=== PATIENT | female | born 1980 | race Caucasian/White ===

== ENCOUNTER 2017-03-19 09:43 | Emergency (ER) | payer MEDICAID ==
[2017-03-19 10:25] LABS: BASOPHILS % (AUTO) 0.3 %; EOSINOPHILS % (AUTO) 0.8 %; HGB - HEMOGLOBIN 13.8 g/dL (12.0-16.0); LYMPHOCYTES % (AUTO) 23.4 %; MEAN CORPUSCULAR HEMOGLOBIN 28.6 pg (27.0-31.0); MEAN CORPUSCULAR HGB CONC 33.5 g/dL (32.0-36.0); MEAN CORPUSCULAR VOLUME 85.3 fL (81.0-99.0); MEAN PLATELET VOLUME 7.7 fL (7.9-10.8); MONOCYTES # (AUTO) 0.4 10^3/uL (0.0-1.0); NEUTROPHILS # (AUTO) 2.8 10^3/uL (1.5-6.6); NEUTROPHILS % (AUTO) 66.5 %; RED BLOOD COUNT 4.81 10^6/uL (4.20-5.40); RED CELL DISTRIBUTION WIDTH 13.6 % (12.0-15.0); UNCORRECTED WHITE BLOOD COUNT 4.2 x10^3/uL; WHITE BLOOD COUNT 4.2 x10^3/uL (4.8-10.8)
[2017-03-19 10:38] LABS: CALCIUM 8.9 mg/dL (8.5-10.3); CREATININE 0.8 mg/dL (0.4-1.0); POTASSIUM 3.7 mmol/L (3.5-5.0); TOTAL PROTEIN 7.3 g/dL (6.7-8.2)
[2017-03-19] MEDS ORDERED: KETOROLAC 60 MG/2 ML VIAL IVP STA (10:46)
--- NOTE | 2017-03-19 10:49 | ED Physician Documentation ---
History of Present Illness - Stated complaint Stated Complaint: CP/ABD PX - Chief complaint Chief Complaint: Cardiac - Additonal information Additional information: hx from pt 36 f to ER with ruq and lower r chest pain since 5 pm last night ate chesse and sausage croissant and cheeseburger that day + fever no NV no cough soa 2/2 pain no urinary sx denies - states 100% certain 2/2 not sexually active Review of Systems Constitutional: reports: Fever Cardiac: reports: Chest pain / pressure Respiratory: reports: Dyspnea GI: reports: Abdominal Pain. 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 - Present Medications Home Medications: Ambulatory Orders Medication Instructions Recorded Confirmed Sertraline HCl [Zoloft] 1 tab DAILY 10/13/14 03/19/17 metFORMIN [Glucophage] 1,000 mg DAILY 10/13/14 03/19/17 - Allergies Allergies/Adverse Reactions: Allergies Allergy/AdvReac Type Severity Reaction Status Date / Time No Known Drug Allergies Allergy Verified 10/13/14 11:38 - Social History Does the pt smoke?: No Smoking Status: Never smoker Does the pt drink ETOH?: No Does the pt have substance abuse?: No PD ED PE NORMAL - Vitals Vital signs reviewed: Yes - General General: Alert and oriented X 3 - HEENT HEENT: PERRL - Neck Neck: Supple, no meningeal sign - Cardiac Cardiac: RRR - Respiratory Respiratory: No respiratory distress, Clear bilaterally - Abdomen Abdomen: Soft, Other (ruq TTP ? murphys) - Derm Derm: Normal color - Extremities Extremities: No deformity Results - Vitals Vitals: Vital Signs - 24 hr 03/19/17 03/19/17 09:48 14:40 Temperature 37.4 C 37.7 C H Heart Rate 88 95 Respiratory 18 16 Rate Blood Pressure 124/53 L 107/64 O2 Saturation 99 98 Oxygen O2 Source Room air - EKG (time done) 0951 Rate: Rate (enter#) (87) Rhythm: NSR [place]: Normal Intervals: Normal MA Ischemia: Normal ST segments - Labs Labs: Laboratory Tests 03/19/17 03/19/17 03/19/17 10:19 10:19 10:19 WBC 4.2 L RBC 4.81 Hgb 13.8 Hct 41.0 MCV 85.3 MCH 28.6 MCHC 33.5 RDW 13.6 Plt Count 146 MPV 7.7 L Neut # 2.8 Lymph # 1.0 L [place] # 0.4 Eos # 0.0 Baso # 0.0 Absolute Nucleated RBC 0.00 Nucleated RBCs 0.0 Sodium 137 Potassium 3.7 Chloride 102 Carbon Dioxide 28 Anion Gap 7.0 BUN 11 Creatinine 0.8 Estimated GFR (MDRD) 82 L Glucose 147 H Calcium 8.9 Total Bilirubin 1.0 AST 49 H ALT 66 H Alkaline Phosphatase 70 Total Protein 7.3 Albumin 3.6 Globulin 3.7 Albumin/Globulin Ratio 1.0 Lipase 30 Serum HCG, Qual NEGATIVE - Rads (name of study) ruq sono Radiology: See rad report (fatty liver, nl GB) CXR Radiology: See rad report (no acute) PD MEDICAL DECISION MAKING - ED course ED course: labs noted - mildly elev AST ALT and glucose pt denies apap etoh use neg sono neg CXR EKG s ischmeia (and pt low risk for ACS) PERC neg serial exams pain had migrated to left side and was improved will try H2B and GI cocktail and plan to dc no change with H2b and GI cocktail but pt understanding and feels OK going home with precautions Departure - Departure Disposition: 01 Home, Self Care Clinical Impression: Abdominal pain Qualifiers: Abdominal location: upper abdomen, unspecified Qualified Code(s): R10.10 - Upper abdominal pain, unspecified Condition: Good Follow-Up: Conrado Shi MD [Primary Care Provider] - (for a recheck before the weekend ) Comments: The labs were fine except for very mildly elevated liver function tests and a mildly elevated glucose level The ultrasound of your gallbladder was fine The chest xray was fine And the EKG was fine Since you are feeling better and the work up is reassuring I think it is safe for you to go home. However, it is not uncommon for medical problems to difficult to diagnose especially in the early stages - so if you develop new symptoms or get worse, please come back to the ER so we can re-evaluate you and see if some disease process is becoming apparent Also please follow up with your PMD to recheck your blood sugar and blood pressure And avoid any alcohol and tylenol and follow up with your PMD to get your liver tests rechecked within 1-2 weeks Forms: Activity restrictions
[2017-03-19] MEDS ORDERED: SODIUM CHLORIDE 0.9% 1,000 ML IV ONE (10:51)
[2017-03-19] MEDS ORDERED: KETOROLAC 30 MG/ML VIAL ONE (10:59)
--- NOTE | 2017-03-19 12:07 | Ultrasound Report ---
RIGHT UPPER QUADRANT ULTRASOUND: 03/19/2017 CLINICAL INDICATION: Pain after eating. TECHNIQUE: Real-time scanning was performed with junior sales representative static images obtained. FINDINGS: The liver measures 21 cm. Hepatic echogenicity is increased, compatible with fatty infiltr ation. No focal parenchymal lesion or intrahepatic biliary dilatation is present. The common bile mannie t measures 5 mm. The gallbladder is normal. The right kidney measures 11.5 cm, and demonstrates no hy dronephrosis. No free fluid is present. IMPRESSION: FATTY INFILTRATION OF THE LIVER. NO EVIDENCE OF CHOLELITHIASIS OR BILIARY DILATATION. JOB #: [id number] EXT JOB #:[id number]
[2017-03-19] MEDS ORDERED: MAG HYDROX/AL HYDROX/SIMETH 30 ML UDC PO STA (13:28)
[2017-03-19] MEDS ORDERED: FAMOTIDINE 20 MG TABLET PO STA (13:28)
[2017-03-19] MEDS ORDERED: LIDOCAINE VISCOUS 2% 15 ML UDC MM STA (13:28)
[2017-03-19] MEDS ORDERED: LIDOCAINE VISCOUS 2% 15 ML UDC MM ONE (14:03)
[2017-03-19] MEDS ORDERED: FAMOTIDINE 20 MG TABLET ONE (14:03)
[2017-03-19] MEDS ORDERED: MAG HYDROX/AL HYDROX/SIMETH 30 ML UDC ONE (14:04)
--- NOTE | 2017-03-19 14:07 | XRAY Preliminary Report ---
Exam: XR Chest 2 View PA/LAT IMPRESSION: Normal 2-view chest radiography. [facility] SITE ID: [id number]
--- NOTE | 2017-03-19 14:15 | XRAY Report ---
EXAM: CHEST RADIOGRAPHY EXAM DATE: 03/19/2017 01:47 PM. CLINICAL HISTORY: Chest pain. Shortness of breath. COMPARISON: None. TECHNIQUE: 2 views. FINDINGS: Lungs/Pleura: No focal opacities evident. No pleural effusion. No pneumothorax. Normal volumes. Mediastinum: Heart and mediastinal contours are unremarkable. Other: Bilateral cervical ribs, anatomic variant. IMPRESSION: Normal 2-view chest radiography. [facility] Referring Provider Line: [phone] SITE ID: [id number]
[2017-03-19 14:42] VITALS: BP 107/64
== END 2017-03-19 15:13 | disposition home or self-care (01) ==
LOC: ED 09:43
DX: R10.11 Right upper quadrant pain (principal); E11.9 Type 2 diabetes mellitus without complications; Z79.84 Long term (current) use of oral hypoglycemic drugs; E28.2 Polycystic ovarian syndrome
CPT/HCPCS: 36415; 71020; 76705; 80053; 83690; 84703; 85025; 93005; 96374; 99283; A9270

== ENCOUNTER 2017-03-28 08:00 | Outpatient (CLI) | payer MEDICAID | END 2017-03-28 08:01 | disposition home or self-care (01) | LOC: LAB.N 08:00 | PROVIDERS: ATTEND Family Medicine | DX: N88.8 Other specified noninflammatory disorders of cervix uteri (principal) | CPT/HCPCS: 87205 ==

== ENCOUNTER 2017-04-15 16:57 | Outpatient (CLI) | payer MEDICAID ==
--- NOTE | 2017-04-16 13:32 | Ultrasound Report ---
PELVIC ULTRASOUND: 04/15/2017 CLINICAL INDICATION: Cervical inflammatory disease, check IUD placement. TECHNIQUE: Transabdominal pelvic ultrasound performed for global evaluation. Transvaginal pelvic ultr asound performed for detailed evaluation. Real-time scanning performed and static images obtained. FINDINGS: The uterus is anteverted, measuring 11.1 x 6.0 x 4.0 cm. The endometrial echo complex uriel ures 8 mm. The IUD is seen in the lower uterine segment, extending into the upper cervix. No focal my ometrial lesion is present. The right ovary measures 4.4 x 2.2 x 1.9 cm, and appears unremarkable. Th e left ovary measures 3.3 x 2.8 x 2.2 cm, and appears unremarkable. No free fluid is present. IMPRESSION: IUD POSITIONED LOW, EXTENDING FROM THE LOWER UTERINE SEGMENT INTO THE CERVIX. NORMAL OVA GENO. JOB #: [id number] EXT JOB #:[id number]
== END 2017-04-15 16:58 | disposition home or self-care (01) ==
LOC: DI 16:57
PROVIDERS: ATTEND Family Medicine
DX: N72 Inflammatory disease of cervix uteri (principal); Z97.5 Presence of (intrauterine) contraceptive device
CPT/HCPCS: 76830; 76856

== ENCOUNTER 2017-04-17 15:52 | Outpatient (CLI) | payer MEDICAID ==
--- NOTE | 2017-04-30 16:43 | Mammography Report ---
DIGITAL SCREENING MAMMOGRAM: 04/17/2017 CLINICAL INDICATION: A 36-year-old with family history of breast cancer, for screening. COMPARISON: The patient reports having had previous mammograms in [place], [place], but films are not ye t available for direct comparison. If they become available, an addendum will be issued. TECHNIQUE: Routine CC and MLO projections were obtained of the breasts. FINDINGS: The breasts demonstrate fatty replacement bilaterally. Coarse and punctate, typically radha gn calcifications are present. No suspicious masses, clustered microcalcifications, or regions of arc hitectural distortion are identified. IMPRESSION: BENIGN FINDINGS. RECOMMENDATION: ROUTINE ANNUAL SCREENING UNLESS OTHERWISE CLINICALLY INDICATED. BIRADS CATEGORY 2-BENIGN FINDINGS. STANDARD QUALIFYING STATEMENTS 1. This examination was reviewed with the aid of Computer-Aided Detection (CAD). 2. A negative or benign imaging report should not delay biopsy if clinically suspicious findings are present. Consider surgical consultation if warranted. More than 5% of cancers are not identified by i maging. 3. Dense breasts may obscure an underlying neoplasm. JOB #: [id number] EXT JOB #:[id number]
== END 2017-04-17 15:53 | disposition home or self-care (01) ==
LOC: DI 15:52
PROVIDERS: ATTEND Family Medicine
DX: Z00.00 Encounter for general adult medical examination without abnormal findings (principal); Z80.3 Family history of malignant neoplasm of breast
CPT/HCPCS: 77067

== ENCOUNTER 2018-05-04 08:40 | Outpatient (CLI) | payer MEDICAID, OTHER ==
[2018-05-04 12:56] LABS: BASOPHILS % (AUTO) 0.4 %; EOSINOPHILS # (AUTO) 0.1 10^3/uL (0.0-0.7); EOSINOPHILS % (AUTO) 1.6 %; HGB - HEMOGLOBIN 14.1 g/dL (12.0-16.0); LYMPHOCYTES # (AUTO) 2.1 10^3/uL (1.5-3.5); MEAN CORPUSCULAR HGB CONC 34.5 g/dL (32.0-36.0); MEAN CORPUSCULAR VOLUME 84.1 fL (81.0-99.0); MEAN PLATELET VOLUME 8.8 fL (7.9-10.8); MONOCYTES # (AUTO) 0.4 10^3/uL (0.0-1.0); MONOCYTES % (AUTO) 5.6 %; NEUTROPHILS # (AUTO) 3.7 10^3/uL (1.5-6.6); NEUTROPHILS % (AUTO) 59.4 %; PLT - PLATELET COUNT 188 10^3/uL (130-450); RED BLOOD COUNT 4.86 10^6/uL (4.20-5.40); WHITE BLOOD COUNT 6.3 x10^3/uL (4.8-10.8)
[2018-05-04 13:07] LABS: ALBUMIN 3.9 g/dL (3.2-5.5); ALBUMIN/GLOBULIN RATIO 1.1 (1.0-2.2); ALKALINE PHOSPHATASE 89 IU/L (42-121); ALT ALANINE AMINOTRANSFERASE 58 IU/L (10-60); AST ASPARTATE AMINOTRANSFERASE 40 IU/L (10-42); BILIRUBIN,TOTAL 0.8 mg/dL (0.2-1.0); BUN - BLOOD UREA NITROGEN 15 mg/dL (6-20); CALCIUM 9.3 mg/dL (8.5-10.3); CARBON DIOXIDE - CO2 29 mmol/L (21-32); CHLORIDE 99 mmol/L (101-111); CHOL/HDL RATIO 7.1 (<4.4); CHOLESTEROL 292 mg/dL; CREATININE 0.8 mg/dL (0.4-1.0); GFR - MDRD 81 (>89); GLUCOSE 154 mg/dL (70-100); HDL CHOLESTEROL 41 mg/dL; LDL CHOLESTEROL,CALCULATED 206 mg/dL; SODIUM 137 mmol/L (135-145); TOTAL PROTEIN 7.6 g/dL (6.7-8.2); VLDL CHOLESTEROL 45 mg/dL
[2018-05-04 13:13] LABS: HB2 TOTAL 15.2 g/dL; HEMOGLOBIN A1C 0.81 g/dL
== END 2018-05-04 08:41 | disposition home or self-care (01) ==
LOC: LAB.N 08:40
PROVIDERS: ATTEND Family Medicine
DX: R73.01 Impaired fasting glucose (principal); E66.9 Obesity, unspecified; E78.5 Hyperlipidemia, unspecified
CPT/HCPCS: 36415; 80050; 80061; 83036; 83721

== ENCOUNTER 2018-07-22 11:28 | Emergency (ER) | payer OTHER ==
[2018-07-22 12:08] LABS: BASOPHILS % (AUTO) 0.4 %; EOSINOPHILS # (AUTO) 0.1 10^3/uL (0.0-0.7); EOSINOPHILS % (AUTO) 1.2 %; HGB - HEMOGLOBIN 13.6 g/dL (12.0-16.0); LYMPHOCYTES # (AUTO) 2.2 10^3/uL (1.5-3.5); LYMPHOCYTES % (AUTO) 29.4 %; MEAN CORPUSCULAR HEMOGLOBIN 28.8 pg (27.0-31.0); MEAN CORPUSCULAR HGB CONC 34.3 g/dL (32.0-36.0); MEAN CORPUSCULAR VOLUME 84.1 fL (81.0-99.0); MEAN PLATELET VOLUME 7.9 fL (7.9-10.8); MONOCYTES # (AUTO) 0.3 10^3/uL (0.0-1.0); MONOCYTES % (AUTO) 3.8 %; NEUTROPHILS # (AUTO) 4.8 10^3/uL (1.5-6.6); NEUTROPHILS % (AUTO) 65.2 %; PLT - PLATELET COUNT 177 10^3/uL (130-450); RED CELL DISTRIBUTION WIDTH 14.2 % (12.0-15.0); WHITE BLOOD COUNT 7.4 x10^3/uL (4.8-10.8)
--- NOTE | 2018-07-22 12:15 | ED Physician Documentation ---
PD HPI CHEST PAIN - Stated complaint Stated Complaint: CHEST PALPITATIONS,TIGHTNESS - Chief complaint Chief Complaint: Cardiac - History obtained from History obtained from: Patient - History of Present Illness Timing - onset: Today (This is a 38-year-old woman with history of CHF 9 years ago and pericarditis as a teenager who presents with fluttering palpitations that started while at rest at work today at 10 AM and lasted for about half an hour. Its associated with moderate chest pressure that is improving but not gone without radiation. There is no associated pedal edema, recent travel, shortness of breath, dizziness, or nausea or sweats, but she is a little fatigued.) Review of Systems Constitutional: reports: Fatigue. 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 - Present Medications Home Medications: Ambulatory Orders Medication Instructions Recorded Confirmed RX: metFORMIN [Glucophage] 1,000 mg DAILY 10/13/14 07/22/18 Sertraline HCl [Zoloft] 1 tab DAILY 10/13/14 07/22/18 - Allergies Allergies/Adverse Reactions: Allergies Allergy/AdvReac Type Severity Reaction Status Date / Time No Known Drug Allergies Allergy Verified 07/22/18 11:45 - Social History Does the pt smoke?: No Smoking Status: Never smoker Does the pt drink ETOH?: No Does the pt have substance abuse?: No PD ED PE NORMAL - Vitals Vital signs reviewed: Yes - General General: Alert and oriented X 3, No acute distress - Neck Neck: Supple, no meningeal sign, No bony TTP - Cardiac Cardiac: RRR, No murmur - Respiratory Respiratory: No respiratory distress, Clear bilaterally - Abdomen Abdomen: Non tender - Extremities Extremities: No edema, No calf tenderness / cord - Neuro Neuro: Alert and oriented X 3, Normal speech Results - Vitals Vitals: Vital Signs - 24 hr 07/22/18 07/22/18 07/22/18 11:42 15:13 15:46 Temperature 37 C 36.4 C L 36.8 C Heart Rate 87 89 77 Respiratory 20 12 Rate Blood Pressure 133/66 H 119/73 139/97 H O2 Saturation 99 97 98 Oxygen O2 Source Room air - EKG (time done) 1141 Rate: Rate (enter#) (87) Rhythm: NSR QRS: Low voltage Ischemia: Non specific changes (Flat T waves). No: ST elevation c/w ischemia, ST elevation c/w repol Computer interpretation: Agree with computer - Labs Labs: Laboratory Tests 07/22/18 07/22/18 07/22/18 11:50 11:50 11:50 WBC 7.4 RBC 4.70 Hgb 13.6 Hct 39.5 MCV 84.1 MCH 28.8 MCHC 34.3 RDW 14.2 Plt Count 177 MPV 7.9 Neut # (Auto) 4.8 Lymph # (Auto) 2.2 [place] # (Auto) 0.3 Eos # (Auto) 0.1 Baso # (Auto) 0.0 Absolute Nucleated RBC 0.00 Nucleated RBC % 0.0 Sodium 135 Potassium 3.7 Chloride 100 L Carbon Dioxide 26 Anion Gap 9.0 BUN 13 Creatinine 0.8 Estimated GFR (MDRD) 81 L Glucose 206 H Calcium 9.0 Magnesium Total Bilirubin 0.8 AST 43 H ALT 49 Alkaline Phosphatase 63 Troponin I < 0.04 B-Natriuretic Peptide Total Protein 7.0 Albumin 3.7 Globulin 3.3 Albumin/Globulin Ratio 1.1 Lipase 40 07/22/18 07/22/18 07/22/18 11:50 11:50 14:45 WBC RBC Hgb Hct MCV MCH MCHC RDW Plt Count MPV Neut # (Auto) Lymph # (Auto) [place] # (Auto) Eos # (Auto) Baso # (Auto) Absolute Nucleated RBC Nucleated RBC % Sodium Potassium Chloride Carbon Dioxide Anion Gap BUN Creatinine Estimated GFR (MDRD) Glucose Calcium Magnesium 1.7 Total Bilirubin AST ALT Alkaline Phosphatase Troponin I < 0.04 B-Natriuretic Peptide 9 Total Protein Albumin Globulin Albumin/Globulin Ratio Lipase - Rads (name of study) 2v chest Radiology: EMP read contemporaneously (normal) PD MEDICAL DECISION MAKING - ED course ED course: 38-year-old woman with palpitations followed by chest pain. EKG is unremarkable here. Given her history a BNP and serial troponins were done in the department without evidence of significant dangerous etiology. Departure - Departure Disposition: 01 Home, Self Care Clinical Impression: Chest pain, Palpitations Condition: Good Instructions: ED Chest Pain Atypical Unkn Cause Comments: Call your doctor to arrange a follow-up appointment, make the next available appointment. In the interim, return anytime if worse or if new symptoms develop. Your blood pressure was elevated today on check into the emergency department. This does not mean that you have hypertension, it is a common phenomenon to come to the emergency department and have elevated blood pressure. I recommend that you see your primary care physician within the week to have it rechecked when you are feeling better. Discharge Date/Time: 07/22/18 15:48
[2018-07-22 12:18] LABS: ALBUMIN 3.7 g/dL (3.2-5.5); ALBUMIN/GLOBULIN RATIO 1.1 (1.0-2.2); BILIRUBIN,TOTAL 0.8 mg/dL (0.2-1.0); CREATININE 0.8 mg/dL (0.4-1.0)
--- NOTE | 2018-07-22 13:00 | XRAY Report ---
Reason: chest pain Procedure Date: 07/22/2018 Accession Number: [id number] / [id number] Procedure: XR - Chest 2 View X-Ray CPT Code: 05364 FULL RESULT: EXAM: CHEST RADIOGRAPHY EXAM DATE: 07/22/2018 12:40 PM. CLINICAL HISTORY: Chest pain. COMPARISON: CHEST 2 VIEW PA/LAT 03/19/2017 1:35 PM. TECHNIQUE: 2 views. FINDINGS: Lungs/Pleura: No focal opacities evident. No pleural effusion. No pneumothorax. Normal volumes. Mediastinum: Heart and mediastinal contours are unremarkable. Other: None. IMPRESSION: Stable exam with no acute cardiopulmonary abnormality. [facility]
[2018-07-22 15:48] VITALS: BP 139/97
== END 2018-07-22 15:48 | disposition home or self-care (01) ==
LOC: ED 11:28
DX: R07.9 Chest pain, unspecified (principal); R00.2 Palpitations; R03.0 Elevated blood-pressure reading, without diagnosis of hypertension; E11.9 Type 2 diabetes mellitus without complications
CPT/HCPCS: 36415; 71046; 80053; 83690; 83735; 83880; 84484; 85025; 93005; 99283

== ENCOUNTER 2018-08-05 16:36 | Outpatient (CLI) | payer OTHER ==
[2018-08-05 16:55] LABS: CREATININE 0.7 mg/dL (0.4-1.0)
[2018-08-05 16:59] LABS: HEMOGLOBIN A1C 0.67 g/dL; HEMOGLOBIN A1C % 6.2 % (4.6-6.2)
== END 2018-08-05 16:37 | disposition home or self-care (01) ==
LOC: LAB 16:36
PROVIDERS: ATTEND Nurse Practitioner
DX: E11.9 Type 2 diabetes mellitus without complications (principal)
CPT/HCPCS: 36415; 80048; 83036

== ENCOUNTER 2018-08-27 12:03 | Outpatient (CLI) | payer OTHER ==
[2018-08-27 19:18] LABS: THYROID STIMULATING HORMONE 1.52 uIU/mL (0.34-5.60)
[2018-08-27 19:29] LABS: FOLATE 9.43 ng/mL (5.90 - >24.8)
== END 2018-08-27 23:59 | disposition home or self-care (01) ==
LOC: LAB.N 12:03
PROVIDERS: ATTEND Nurse Practitioner
DX: E55.9 Vitamin D deficiency, unspecified (principal); R53.83 Other fatigue
CPT/HCPCS: 36415; 82306; 82607; 82746; 84443

== ENCOUNTER 2018-10-06 14:46 | Outpatient (CLI) | payer OTHER | END 2018-10-06 14:47 | disposition home or self-care (01) | LOC: SC 14:46 | PROVIDERS: ATTEND Internal Medicine Pulmonary Disease | DX: G47.10 Hypersomnia, unspecified (principal); R53.83 Other fatigue; R06.83 Snoring | CPT/HCPCS: 99203; 99212 ==

== ENCOUNTER 2018-10-28 20:20 | Outpatient (CLI) | payer OTHER | END 2018-10-28 20:21 | disposition home or self-care (01) | LOC: SC 20:20 | PROVIDERS: ATTEND Internal Medicine Pulmonary Disease | DX: G47.33 Obstructive sleep apnea (adult) (pediatric) (principal) | CPT/HCPCS: 95810 ==

== ENCOUNTER 2019-01-05 13:57 | Outpatient (CLI) | payer OTHER | END 2019-01-05 13:58 | disposition home or self-care (01) | LOC: SC 13:57 | PROVIDERS: ATTEND Internal Medicine Pulmonary Disease | DX: G47.33 Obstructive sleep apnea (adult) (pediatric) (principal) | CPT/HCPCS: 99212; 99213 ==

== ENCOUNTER 2019-02-05 20:20 | Outpatient (CLI) | payer OTHER | END 2019-02-05 20:21 | disposition home or self-care (01) | LOC: SC 20:20 | PROVIDERS: ATTEND Internal Medicine Pulmonary Disease | DX: G47.33 Obstructive sleep apnea (adult) (pediatric) (principal) | CPT/HCPCS: 95811 ==

== ENCOUNTER 2019-03-30 09:16 | Outpatient (CLI) | payer OTHER ==
[2019-03-30 10:35] VITALS: BP 110/70
--- NOTE | 2019-03-30 10:35 | SLEEP CARE CONSULTATION ---
Information from patient questionnaire entered by Lois Chew. I have reviewed and concur with the information entered by Lois Chew. This document represents the service I personally performed and the decisions made by me, Carly Holman, RN, MSN, SCIENTIFIC EDITOR. History of Present Illness Previous diagnosis: Moderate, Obstructive Sleep Apnea-Hypopnea Syndrome AHI: 29.9 Reason for CPAP/BiPAP follow up: first compliance, with manual titration Equipment type: CPAP Equipment obtained from: [employer] Mask style: Nasal (Dreamwear) Mask brand: Respironics Backup mask available: Yes Last cushion change: not since set up HPI additional information: The patient returned to review results of her manual titration study and first compliance visit. Sleep Study - Polysomnography Polysomnography findings: The quality of the study is good. CPAP was initiated at 5 cmH2O and titrated up to CPAP at 9 cmH2O. CPAP at 9 cmH2O appeared to be optimal (AHI of 0.9 per hour on the pressure). There was supine REM sleep on the pressure. Oxygen saturation was normal throughout the night. Lower CPAP settings allowed frequent residual respiratory events. The patient appeared to have tolerated positive airway pressure therapy very well. The patients sleep efficiency was normal. The sleep architecture was normal. There was no periodic limb movement of sleep. Cardiac rhythm was normal sinus rhythm without significant arrhythmia. No abnormal behavior (parasomnia) observed during the night. CPAP Compliance Data - Data Reviewed with Patient Average duration of nightly device use: 5.45 Compliance rate %: 77 Current pressure setting (cmH2O): 4-12 Average residual AHI: 0.8 Average large leak: 1.7 liters a minute Subjective Patient concerns: reports: mask leak noise. denies: aerophagia, mask discomfort, air blowing in eyes (recent mask leaks despite adjustment of headgear), condensation in mask/hose, nasal congestion, dry mouth, nose, throat, epistaxis Observed to snore while using device: No Current pressure setting perceived as: comfortable On therapy, patient: reports: sleeping better, more rested overall (but still tired). denies: drowsiness while driving Initial [place] Sleepiness Scale score: 13 Current [place] Sleepiness Scale score: 12 Allergies and Home Medications Allergy and home medication list: Sertraline 1000mg tab one daily Metformin HCL 100mg tab one twice daily w/meals Hydroxyzine HCL 25mg tab one three times daily as needed Bupropion HCL ER 100mg tab one twice daily Naltrexone HCL 50mg tab daily Atorvastatin 10mg daily Review of Systems Review of systems same as previous: Yes Physical Exam Blood Pressure: 110/70 Cuff size: long Heart Rate: 82 O2 Saturation: 98 Height: 5 ft 3.5 in Weight (kg): 309 lb 12.8 oz Body Mass Index: 54.0 BMI Classification: Class 3 Impression and Plan 1. Obstructive Sleep Apnea-Hypopnea Syndrome, severity, with good treatment compliance and good apnea control. On CPAP therapy, the patient has better sleep quality and is more rested overall but still has fatigue. Fatigue could be due to insufficient sleep with CPAP. She is advised to strive for a minimum of 7 hours. Most people require 7-9 hours of sleep for optimal mental and physical function. I will also adjust her pressure to start at 9cmH20 as indicated by titration study but allow it stay at maximum of [id number] as her 95th pressure is [id number] with current compliance data. Since her nasal cushions are starting to wear down and leak, I advised her to update her mask cushions. I gave her the supply replacement list for her to review for reference. She has met compliance goals for insurance. I emphasized that maximum benefit of treatment is using CPAP with all sleep. Patient's apnea severity and rationale for treatment to reduce apnea, improve sleep quality and reduce cardiovascular and cerebrovascular events was reviewed. I also reviewed the benefit of consistent device use of CPAP for her diabetes, gastric reflux, depression/anxiety. Because of patient's obesity ang goal to lose weight, I explained how correction of her apnea and improved sleep can assist her to lose weight. Fragmentation of sleep affects the appetite hormones. Sleeping better can reduce appetite and allow her to make better food choices. As she loses weight her apnea severity can also reduce. * * Change CPAP pressure to 9-12 cmH2O * update mask cushions * Strive for more sleep. * copy of compliance reports given per request. * Notify me if snoring with mask or feeling that the pressure is too much or too little * Attempt to lose weight * Return for follow up in 3 months, or sooner if concerns arise I spent 100% of this 33 minute visit face to face with the patient with greater than 50% of this was spent time counseling the patient and coordination of care.
== END 2019-03-30 09:17 | disposition home or self-care (01) ==
LOC: SC 09:16
PROVIDERS: ATTEND Nurse Practitioner Family
DX: G47.33 Obstructive sleep apnea (adult) (pediatric) (principal)
CPT/HCPCS: 99212; 99214

== ENCOUNTER 2019-04-13 11:44 | Emergency (ER) | payer OTHER ==
[2019-04-13] MEDS ORDERED: KETOROLAC 60 MG/2 ML VIAL IM STA (12:48)
[2019-04-13] MEDS ORDERED: CYCLOBENZAPRINE 10 MG TABLET PO STA (12:48)
--- NOTE | 2019-04-13 12:49 | ED Physician Documentation ---
PD HPI BACK INJURY - Stated complaint Stated Complaint: BACK - History obtained from History obtained from: Patient - History of Present Illness Location: Left (38-year-old woman with well-controlled type 2 diabetes presents with left low back pain that started last night. No specific injury. It radiates a bit into the thigh, not further. No weakness, numbness, tingling, saddle anesthesia, or incontinence. No fevers. 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 HEENT: Tonsil/Adenoidectomy - Present Medications Home Medications: Ambulatory Orders Medication Instructions Recorded Confirmed Sertraline HCl [Zoloft] 1 tab DAILY 10/13/14 07/22/18 metFORMIN [Glucophage] 1,000 mg DAILY 10/13/14 07/22/18 Atorvastatin [Lipitor] 10 mg ORAL DAILY 04/13/19 04/13/19 Cyclobenzaprine [Flexeril] 10 mg PO TID PRN #20 tablet 04/13/19 Meloxicam [Mobic] 7.5 mg PO BID PRN #20 tablet 04/13/19 Naltrexone [Naltrexone Base 04/13/19 Monohydrate] buPROPion [Wellbutrin Sr] 100 mg PO BID 04/13/19 04/13/19 - Allergies Allergies/Adverse Reactions: Allergies Allergy/AdvReac Type Severity Reaction Status Date / Time No Known Drug Allergies Allergy Verified 04/13/19 11:53 - Social History Does the pt smoke?: No Smoking Status: Never smoker Does the pt drink ETOH?: No Does the pt have substance abuse?: No - Immunizations Immunizations are current?: Yes - POLST Patient has POLST: No PD ED PE NORMAL - Vitals Vital signs reviewed: Yes - General General: Alert and oriented X 3, No acute distress (But winces with motion) - Abdomen Abdomen: Soft, Non tender - Back Back: No spinal TTP, Other (Mild tenderness to the left paralumbar musculature.) - Neuro Neuro: Alert and oriented X 3, Normal speech, Other (The patient has equal and normal Achilles and patellar reflexes bilaterally. Normal sensation in all areas of the legs. Patient denies saddle anesthesia. Normal strength in flexion-extension at the ankles, knees, and flexion of the hips.) Results - Vitals Vitals: Vital Signs - 24 hr 04/13/19 11:52 Temperature 36.2 C L Heart Rate 88 Respiratory 18 Rate Blood Pressure 125/64 O2 Saturation 95 Oxygen O2 Source Room air Departure - Departure Disposition: 01 Home, Self Care Clinical Impression: Low back pain Qualifiers: Chronicity: acute Back pain laterality: left Sciatica presence: without sciatica Qualified Code(s): M54.5 - Low back pain Condition: Good Record reviewed to determine appropriate education?: Yes Instructions: ED Spasm Back No Trauma Prescriptions: Cyclobenzaprine [Flexeril] 10 mg PO TID PRN #20 tablet PRN Reason: Spasms Meloxicam [Mobic] 7.5 mg PO BID PRN #20 tablet PRN Reason: Pain Comments: Follow-up with your doctor tomorrow as scheduled. Do not drink or drive with the perception muscle relaxers. Return for new or worsening symptoms, return f or fever. Return for incontinence. Forms: Activity restrictions
[2019-04-13 13:11] VITALS: BP 131/71
== END 2019-04-13 13:10 | disposition home or self-care (01) ==
LOC: ED 11:44
DX: M54.5 Low back pain (principal); E11.9 Type 2 diabetes mellitus without complications; Z79.84 Long term (current) use of oral hypoglycemic drugs
CPT/HCPCS: 99283; A9270

== ENCOUNTER 2019-07-01 08:16 | Outpatient (CLI) | payer OTHER ==
[2019-07-01 09:01] VITALS: BP 110/70
--- NOTE | 2019-07-01 09:01 | SLEEP CARE CONSULTATION ---
Information from patient questionnaire entered by Lois Chew. I have reviewed and concur with the information entered by Lois Chew. This document represents the service I personally performed and the decisions made by me, Carly Holman, RN, MSN, LINE INSTALLER. History of Present Illness Previous diagnosis: Moderate, Obstructive Sleep Apnea-Hypopnea Syndrome AHI: 29.9 Reason for follow up: three month Equipment type: CPAP Equipment obtained from: [employer] Mask style: Nasal pillows Mask brand: Resmed Backup mask available: Yes Last cushion change: a month HPI additional information: Changing nasal mask cushion resolved mask leaks. When she had a cold she was able to use her full face mask. The new pressure is more comfortable to use. CPAP Compliance Data - Data Reviewed with Patient Average duration of nightly device use: 6.6 Compliance rate %: 91 (90 days) Current pressure setting (cmH2O): 9-12 Humidity settin Average residual AHI: 0.4 Average large leak: 0.6 liters per minute Subjective Patient concerns: denies: aerophagia, mask discomfort, air blowing in eyes, mask leak noise, condensation in mask/hose, nasal congestion, dry mouth, nose, throat, epistaxis Observed to snore while using device: No Current pressure setting perceived as: comfortable On therapy, patient: reports: sleeping better, awakening more refreshed, being more awake and alert during the day, more rested overall. denies: drowsiness while driving Initial [place] Sleepiness Scale score: 13 Current [place] Sleepiness Scale score: 10 Allergies and Home Medications Known drug allergies: No Home medication list reviewed: Yes Allergy and home medication list: sertraline 100mg daily metformin 1000mg daily hydroxyzine 25mg as needed 3 times a day Bupropion 100mg 2 times a day Naltrexone 50mg 1/2 daily atorvastatin 10mg Hs Review of Systems Review of systems same as previous: Yes Physical Exam Blood Pressure: 110/70 Cuff size: long Heart Rate: 78 O2 Saturation: 98 Height: 5 ft 3.5 in Weight: 310 lb 9.6 oz Body Mass Index: 54.1 BMI Classification: Obesity Class 3 Impression and Plan 1. Obstructive Sleep Apnea-Hypopnea Syndrome, moderate , with good treatment compliance and good apnea control. On CPAP therapy, the patient has better sleep quality and is more rested overall. To reduce mask leaks noted on compliance she is advised to change her cushions more frequently such as every 2 weeks. She is planning on losing some weight. She has consult for bariatric surgery or other treatment to reduce weight due to morbid obesity as she has had difficulty losing weight. Thus she was advised how significant weight can reduce her apnea risk, CPAP pressure and overall health risks. Symptoms to report for CPAP pressure adjustment discussed. Patient's apnea severity and rationale for treatment to reduce apnea, improve sleep quality and reduce cardiovascular and cerebrovascular events was reviewed. I also reviewed the benefit of consistent device use of her diabetes, depression/anxiety. * Continue CPAP pressure at 9-12 cmH2O * Notify me if snoring with mask or feeling that the pressure is too much or too little * Attempt to lose weight * Return for follow up in 6 months, or sooner if concerns arise I spent 100% of this 25 minute visit face to face with the patient with greater than 50% of this was spent time counseling the patient and coordination of care.
== END 2019-07-01 08:17 | disposition home or self-care (01) ==
LOC: SC 08:16
PROVIDERS: ATTEND Nurse Practitioner Family
DX: G47.33 Obstructive sleep apnea (adult) (pediatric) (principal); E66.01 Morbid (severe) obesity due to excess calories; Z68.43 Body mass index [BMI] 50.0-59.9, adult
CPT/HCPCS: 99212; 99214

== ENCOUNTER 2020-03-10 16:01 | Outpatient (CLI) | payer OTHER ==
--- NOTE | 2020-03-10 16:38 | SLEEP CARE CONSULTATION ---
Information from patient questionnaire entered by Lois Chew. I have reviewed and concur with the information entered by Lois Chew. This document represents the service I personally performed and the decisions made by , Taylor Grant ARNP. History of Present Illness Service Date and Time: 03/10/2020 1601 Previous diagnosis: Moderate, Obstructive Sleep Apnea-Hypopnea Syndrome AHI: 29.9 (in 2019) Reason for follow up: other (8 month check) Equipment type: CPAP Equipment obtained from: [facility] (getting as needed) Mask style: Nasal Mask brand: Resmed Backup mask available: Yes (old mask) Last cushion change: 1 month ago Prior sleep studies: Yes Year and Where: 2019 - [facility] Type of Sleep Study: Polysomnography HPI additional information: ANY RUIZ was diagnosed to have moderate, AHI 29.9, obstructive sleep apnea-hypopnea syndrome and returned today for CPAP therapy 8 month follow-up. Patient states due to Covid pandemic she did not do some follow ups and she thinks this is basically her annual follow up today. She did have bariatric surgery in January and has lost 20 pounds in the last month. CPAP Compliance Data - Data Reviewed with Patient Average duration of nightly device use: 6.45 Compliance rate %: 90 (90 days) Current pressure setting (cmH2O): 9-12 Average residual AHI: 0.4 Central apnea: 0.2 Obstructive apnea: 0.0 On Oxygen: Yes Subjective Patient concerns: reports: dry mouth, nose, throat (dry mouth in last month, thinks she is not drinking as much fluids). denies: aerophagia, mask discomfort, air blowing in eyes, mask leak noise, condensation in mask/hose, nasal congestion, epistaxis, other Observed to snore while using device: No Current pressure setting perceived as: comfortable On therapy, patient: reports: sleeping better, awakening more refreshed, being more awake and alert during the day, more rested overall. denies: drowsiness while driving Initial [place] Sleepiness Scale score: 13 (in 2019) Current [place] Sleepiness Scale score: 2 Allergies and Home Medications Drug allergies reviewed: Yes (Nsaids) Home medication list reviewed: Yes Allergy and home medication list: Metformin 500 mg daily, reduced from last dose Zofoft Wellbutrin Omeprazole atorvastatin MVT Calcium Review of Systems Review of systems same as previous: No (bariatric surgery January 30) Physical Exam Heart Rate: 86 O2 Saturation: 98 Height: 5 ft 3.5 in Weight: 261 lb 3.2 oz Body Mass Index: 45.5 BMI Classification: Morbidly Obese Impression and Plan 1. Obstructive Sleep Apnea-Hypopnea Syndrome, moderate, with good treatment compliance and good apnea control. On CPAP therapy, there is improved sleep quality and feels more rested overall. She has lost 20 pounds since her bariatric surgery in January. The pressure continues to be comfortable but she was instructed to call if the pressure seems to high or she has aerophagia and we will adjust her pressure to accommodate for her weight loss. Patient's apnea severity and rationale for treatment to reduce apnea, improve sleep quality and reduce cardiovascular and cerebrovascular events was reviewed. I also reviewed the benefit of consistent device use of CPAP for arrhythmia, diabetes, and depression/anxiety. Continue auto CPAP pressure at 9-12 cm H2O. Notify me if snoring with the mask or feeling that the pressure is too much or too little. Continue efforts to lose weight. Return for follow-up in one year, or sooner if concerns arise. a Visit Type: In Office Time Spent with Patient (minutes): 20 Provider Statement: I spent 100% of the Face to Face Visit with the patient with greater than 50% spent counseling the patient and coordination of care.
== END 2020-03-10 16:02 | disposition home or self-care (01) ==
LOC: SC 16:01
PROVIDERS: ATTEND Nurse Practitioner Family
DX: G47.33 Obstructive sleep apnea (adult) (pediatric) (principal); E66.01 Morbid (severe) obesity due to excess calories; Z68.42 Body mass index [BMI] 45.0-49.9, adult
CPT/HCPCS: 99212; 99213

== ENCOUNTER 2021-09-17 15:30 | Outpatient (CLI) | payer OTHER ==
--- NOTE | 2021-09-19 12:08 | Mammography Report ---
BILATERAL DIGITAL SCREENING MAMMOGRAM 3D/2D: 09/17/2021 CLINICAL: Family history of breast cancer. Routine screening. Comparison is made to exams dated: 04/17/2017 mammogram and 03/02/2014 mammogram - [facility]. There are scattered fibroglandular elements in both breasts. There are benign calcifications in both breasts. No significant masses, calcifications, or other findings are seen in either breast. There has been no significant interval change. IMPRESSION: BENIGN There is no mammographic evidence of malignancy. A 1 year screening mammogram is recommended. This exam was interpreted at Station ID: [id number]. NOTE: For mammograms, a report in lay terms will be sent to the patient. Approximately 15% of breast malignancies will not be visualized mammographically. In the management of a palpable breast mass, a negative mammogram must not discourage biopsy of a clinically suspicious lesion. Electronically Signed By: Damon Melendrez M.D. slc/penrad:09/18/2021 08:21:09 ACR BI-RADS Category 2: Benign Finding(s) 3342F PARENCHYMAL PATTERN: (A) - The breast(s) demonstrate(s) scattered fibroglandular densities. BI-RADS CATEGORY: (2) - 2 RECOMMENDATION: (ANNUAL) - Recommend routine annual screening mammography. [id number] 1 year screening LATERALITY: (B)
== END 2021-09-17 15:31 | disposition home or self-care (01) ==
LOC: DI.N 15:30
PROVIDERS: ATTEND Physician Assistant
DX: Z12.31 Encounter for screening mammogram for malignant neoplasm of breast (principal); Z80.3 Family history of malignant neoplasm of breast

== ENCOUNTER 2022-11-17 13:05 | Emergency (ER) | payer OTHER ==
--- NOTE | 2022-11-17 13:46 | ED Physician Documentation ---
PD HPI FOCAL NEURO - Stated complaint Stated Complaint: FACIAL NUMBNESS - Chief complaint Chief Complaint: Neuro - History obtained from History obtained from: Patient - History of Present Illness Timing - onset: Yesterday Timing - duration: Days (1) Timing - details: Gradual onset Associated symptoms: No: Headache, Nausea / vomiting, Seizure, Syncope, Fall, Head injury, Chest pain, Neck pain, Back pain, Fever Contributing factors: negative: Anticoagulated, Vascular dz, Atrial fibrillation, Prosthetic heart valve Baseline status: positive: A&OX3, ambulatory, indep - Additional information Additional information: 42-year-old female presents to the emergency department with right-sided facial numbness and droop on the right side that she noted yesterday. Difficulty closing her eye as well. Nothing makes it better or worse. Does not have any other neurological deficits. No involvement of any limbs. No recent illnesses. No fevers. No chills. 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 HEENT: Tonsil/Adenoidectomy - Present Medications Home Medications: Ambulatory Orders Medication Instructions Recorded Confirmed Sertraline HCl [Zoloft] 1 tab DAILY 10/13/14 07/22/18 metFORMIN [Glucophage] 1,000 mg DAILY 10/13/14 07/22/18 Atorvastatin [Lipitor] 10 mg ORAL DAILY 04/13/19 04/13/19 Cyclobenzaprine [Flexeril] 10 mg PO TID PRN #20 tablet 04/13/19 Meloxicam [Mobic] 7.5 mg PO BID PRN #20 tablet 04/13/19 Naltrexone [Naltrexone Base 04/13/19 Monohydrate] buPROPion [Wellbutrin Sr] 100 mg PO BID 04/13/19 04/13/19 Valacyclovir HCl [Valtrex] 1,000 mg PO TID #21 tablet 11/17/22 predniSONE [Deltasone] 80 mg PO DAILY #28 tablet 11/17/22 - Allergies Allergies/Adverse Reactions: Allergies Allergy/AdvReac Type Severity Reaction Status Date / Time NSAIDS (Non-Steroidal Allergy Unknown Verified 11/17/22 13:17 Anti-Inflamma - Social History Does the pt smoke?: No Smoking Status: Never smoker Does the pt drink ETOH?: No Does the pt have substance abuse?: No - Immunizations Immunizations are current?: Yes - POLST Patient has POLST: No PD ED PE NORMAL - Vitals Vital signs reviewed: Yes - General General: Alert and oriented X 3, No acute distress - HEENT HEENT: PERRL, Moist mucous membranes - Neck Neck: Supple, no meningeal sign, No bony TTP - Cardiac Cardiac: RRR - Respiratory Respiratory: No respiratory distress, Clear bilaterally - Abdomen Abdomen: Soft, Non tender, Non distended - Back Back: No spinal TTP - Derm Derm: Warm and dry, No rash - Extremities Extremities: No edema, No calf tenderness / cord - Neuro Neuro: Alert and oriented X 3, Other (no other abnormalities besides the facial numbness and weakness. ) - Psych Psych: Normal mood, Normal affect - Free text exam Free text exam: Mild right-sided facial paralysis. There is no sparing of the forehead. Positive Kasper's phenomenon. Flattening of the nasolabial fold. Mild decrease sensation on the right side of the face, from the eye down. NIHSS - Time Time: 13:42 - Level of Consciousness Level of consciousness: (0) Alert, Keenly responsive LOC Questions: (0) Answers both Q's correct LOC Commands: (0) Performs both correctly - Gaze Best Gaze: (0) Normal - Visual Visual: (0) No loss - Facial Palsy Facial Palsy: (1) Minor paralysis - Motor Arms (both separate) Motor Arm (right): (0) No drift Motor Arm (left): (0) No drift - Motor Legs (both separate) Motor Leg (right): (0) No drift Motor Leg (left): (0) No drift - Limb Ataxia Limb Ataxia: (0) Absent - Sensory Sensory: (0) Normal - Best Language Best Language: (0) No aphasia - Dysarthria Dysarthria: (0) Normal - Extinction and Inattention (formally neg Extinction and inattention: (0) No abnormality - Total Score/Results Total Score/Result: 1 Results - Vitals Vitals: Vital Signs - 24 hr 11/17/22 11/17/22 13:10 13:51 Temperature 36.9 C Heart Rate 77 76 Respiratory 15 20 Rate Blood Pressure 126/66 119/72 O2 Saturation 96 99 Oxygen O2 Source Room air PD Medical Decision Making - ED course Complexity details: considered differential, d/w patient, d/w family ED course: Patient with Kasper's palsy. We will place on antiviral medication and steroids. Counseled regarding eye care. No indication for emergent head CT, CT angiogram. Symptoms not consistent with stroke. Patient counseled regarding signs and symptoms for which I believe and urgent re-evaluation would be necessary. Patient with good understanding of and agreement to plan and is comfortable going home at this time This document was made in part using voice recognition software. While efforts are made to proofread this document, sound alike and grammatical errors may occur. Departure - Departure Disposition: 01 Home, Self Care Clinical Impression: Kasper palsy Condition: Good Instructions: ED [place] Palsy Follow-Up: LEATHA QUIÑONES ARNP [Primary Care Provider] - Within 1 week Prescriptions: predniSONE [Deltasone] 80 mg PO DAILY #28 tablet Valacyclovir HCl [Valtrex] 1,000 mg PO TID #21 tablet Comments: You have bells palsy today. Your prescriptions were sent to [facility] in [place]. It is recommended that you use artificial tears throughout the day to help lubricate the right eye. You will want to use gel tears, especially at night. You may need to tape your eyelid closed at night as well to prevent corneal abrasions and ulcerations. Please follow-up with your doctor for further care. Discharge Date/Time: 11/17/22 14:00
[2022-11-17 13:52] VITALS: BP 119/72
== END 2022-11-17 14:00 | disposition home or self-care (01) ==
LOC: ED 13:05
DX: G51.0 Bell's palsy (principal); E11.9 Type 2 diabetes mellitus without complications; Z79.84 Long term (current) use of oral hypoglycemic drugs
CPT/HCPCS: 99283

== ENCOUNTER 2023-05-17 14:21 | Emergency (ER) | payer OTHER ==
[2023-05-17 14:30] VITALS: BP 132/61; O2SAT 97
[2023-05-17] MEDS ORDERED: HYDROcod/ACETAM 5/325 MG TABLET PO STA (14:31)
[2023-05-17] MEDS ORDERED: TETANUS/DIPHTHERIA/PERTUSSIS 0.5 ML SYRINGE IM ONE (14:32)
--- NOTE | 2023-05-17 14:33 | ED Physician Documentation ---
PD HPI UPPER EXT INJURY - Stated complaint Stated Complaint: RT FINGER LAC - Chief complaint Chief Complaint: Trauma Ext - History obtained from History obtained from: Patient (Left-handed woman with unknown tetanus status got her third finger of the right hand caught between an object and a tony while working at home just prior to arrival with severe pain. 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 HEENT: Tonsil/Adenoidectomy - Present Medications Home Medications: Ambulatory Orders Medication Instructions Recorded Confirmed Sertraline HCl [Zoloft] 2 tab PO DAILY 10/13/14 01/30/23 buPROPion [Wellbutrin Sr] 100 mg PO BID 04/13/19 01/30/23 Cetirizine HCl [Zyrtec] 10 mg PO PRN PRN 01/30/23 01/30/23 Montelukast [Singulair] 10 mg PO PRN PRN 01/30/23 01/30/23 Valacyclovir HCl [Valtrex] 1,000 mg PO TID PRN 01/30/23 01/30/23 HYDROcod/ACETAM 5/325 [[place] 5/325] 1 - 2 tab PO Q6H PRN #10 tablet 05/17/23 - Allergies Allergies/Adverse Reactions: Allergies Allergy/AdvReac Type Severity Reaction Status Date / Time NSAIDS (Non-Steroidal Allergy Unknown Verified 01/30/23 16:29 Anti-Inflamma - Social History Does the pt smoke?: No Smoking Status: Never smoker Does the pt drink ETOH?: No Does the pt have substance abuse?: No - Immunizations Immunizations are current?: Yes - POLST Patient has POLST: No PD ED PE NORMAL - Vitals Vital signs reviewed: Yes - General General: Alert and oriented X 3, No acute distress - Extremities Extremities: Other (She is tender to the DIP and tip of the right third digit and there is a very small subungual hematoma. There is a flap laceration on the dorsal surface just proximal to the nail.) - Neuro Neuro: Alert and oriented X 3, Normal speech Results - Vitals Vitals: Vital Signs - 24 hr 05/17/23 14:23 Temperature 36.7 C Heart Rate 80 Respiratory 18 Rate Blood Pressure 132/61 H O2 Saturation 97 Oxygen O2 Source Room air - Rads (name of study) Three-view x-ray of the right hand is negative for fracture Relevant Findings:: Final report received, EMP independent interpretation of test Procedures - Laceration (location) R 3rd finger Length in cm: 1 Wound type: Curved, Superficial Neurovascular status: Sensory intact, Motor intact, Vascular intact Wound preparation: Irrigated copiously NS Skin layer closure: Dermabond Other: Patient tolerated well, No complications, Neurovascular intact, Tetanus booster given Departure - Departure Disposition: Home, Self Care Clinical Impression: Crushing injury of finger of right hand Finger laceration Qualifiers: Encounter type: initial encounter Finger: middle finger Damage to nail status: without damage Foreign body presence: without foreign body Laterality: right Qualified Code(s): S61.212A - Laceration without foreign body of right middle f scott without damage to nail, initial encounter Condition: Good Record reviewed to determine appropriate education?: Yes Instructions: ED Crush Injury Finger No Fx, ED Laceration Ext Skin Glue Prescriptions: HYDROcod/ACETAM 5/325 [[place] 5/325] 1 - 2 tab PO Q6H PRN #10 tablet PRN Reason: Pain Comments: If not improving significantly in a week follow-up with your doctor for reevaluation. Return for new or worsening symptoms. I sent your prescription electronically to [facility] in [place]. If pain is mild just use Tylenol per package instructions. I am prescribing a short course of narcotic pain medication for you. These are potentially dangerous and addictive medications that should be used carefully. These medications may constipate you. Take an [id number] stool softener (docusate) twice daily with plenty of water while taking these medications. If you go 24 hours without a bowel movement, take [id number] miralax, per package instructions. Do not drink or drive while taking these medications. If you received narcotic or sedating medications while in the emergency department, do not drive for 24 hours. Store this medication in a safe, secure place and out of reach of children. It is a violation of federal law to give or sell this medication to another person or to use in a manner other than prescribed. The ED will not refill narcotic prescriptions, including prescriptions lost or stolen. To dispose of unwanted medications: 1. [facility] provides a drop box for medication in pill form only (no liquids) 8:00 am to 4:30 p.m. Friday-Friday in the lobby of the [facility] [place], [address] Empty pills into ziplock bag before disposal. Call [phone] for information. 2.[employer]io is a free service available to all [facility] residents. Go to [email or web address] Note that many narcotic pain relievers also contain Tylenol/acetaminophen. Please ensure that your total dose of acetaminophen from all sources does not exceed 3 g (3000 mg) per day. Forms: PCP List Discharge Date/Time: 05/17/23 14:57
--- NOTE | 2023-05-17 15:17 | XRAY Report ---
PROCEDURE: Hand 3 View RT INDICATIONS: hand inj TECHNIQUE: 3 views of the hand(s) acquired. COMPARISON: None. FINDINGS: Bones: No fractures or dislocations. No suspicious bony lesions. Soft tissues: No suspicious soft tissue calcifications or masses. IMPRESSION: No acute bony abnormality. Reviewed by: Jorge Eason MD on 05/17/2023 2:16 PM AKDT Approved by: Jorge Eason MD on 05/17/2023 2:16 PM AKDT Station ID: [id number]
== END 2023-05-17 14:57 | disposition home or self-care (01) ==
LOC: ED 14:21
DX: S67.192A Crushing injury of right middle finger, initial encounter (principal); S61.212A Laceration without foreign body of right middle finger without damage to nail, initial encounter; W23.1XXA Caught, crushed, jammed, or pinched between stationary objects, initial encounter; Y93.89 Activity, other specified; Y92.009 Unspecified place in unspecified non-institutional (private) residence as the place of occurrence of the external cause
CPT/HCPCS: 12001; 73130; 90471; 90715; 99283; 99284; A9270

== ENCOUNTER 2023-05-23 15:34 | Outpatient (CLI) | payer OTHER ==
--- NOTE | 2023-05-23 16:07 | Sleep Patient Instructions ---
Sleep Center Visit Summary - Patient Visit Information Reason for Visit: Initial consultation - Patient Instructions Instructions Attached: Sleep Study, Sleep Study Home Monitor Additional Instructions: You will be completing a sleep study, either an in-lab polysomnography (PSG) or home sleep study (HST). You will follow-up in the sleep care office after the sleep study is completed to hear the results and talk about therapy, if needed. You will be called by our office staff to schedule this appointment, but you may contact us with any questions. - Clinic Information Contact: [facility] [address] [place] [address] [email or web address] T: [phone]
--- NOTE | 2023-05-23 16:09 | SLEEP CARE CONSULTATION ---
Information from patient questionnaire entered by Juliette Okeefe. I have reviewed and concur with the information entered by Juliette Okeefe. This document represents the service I personally performed and the decisions made by me, Taylor Grant ARNP. History of Present Illness Service Date and Time: 05/23/2023 1534 Reason for Visit: New patient, Previously diagnosed sleep apnea, Re-establish care Chief Complaint: reports: Insomnia, Snoring, Excessive daytime sleepiness, Fatigue Date of Onset: YR Usual bedtime: 12AM Time it takes to fall asleep: 15MIN Snores at night: Yes Observed to quit breathing while asleep: Yes Sleeps alone due to snoring: No Number of times waking at night: 1 Reasons for waking at night: reports: Bathroom. denies: Choking, Gasping for air Toss, Turn, or Twitch while sleeping: Yes Recalls having dreams: Yes Usually gets out of bed at: 720AM; weekends 0900 Feels refreshed in the morning: No Morning headache: No Sleepy or fatigued during the day: Yes Ever fallen asleep while driving: No Takes day naps: No Dreams during day naps: Yes Prior sleep studies: Yes Year and Where: [address] - [facility] Additional HPI information: ANY RUIZ was previously diagnosed to have moderate, AHI 29.9, obstructive sleep apnea-hypopnea syndrome as documented in titration study done on 02/05/2019 and comes in today to re-establish care. She is not currently using a CPAP. She has complaints of excessive daytime sleepiness, fatigue, insomnia and snoring. She lost about 70 pounds after a [facility]. She had trouble with the pressure a nd stopped using it after the weight loss. She has not used the CPAP in 2 years. She has gained a lot of weight back. She is here for re-evaluation. - Parasomnia Symptoms Ever been unable to move upon waking from sleep: No Walks in sleep: No Talks in sleep: No Ever acted out dreams in sleep: No Ever felt weak in the knees when startled or emotional: No Bothered by creepy, crawly, restless sensations in legs: Yes Problems with memory or concentration: Yes (mostly memory) Subjective Initial [place] Sleepiness Scale score: 13 (in 2019) Current [place] Sleepiness Scale score: 12 (05/23/23) Past Medical History Past Medical History: reports: Diabetes, Anxiety, Depression, Other (Bariatric surgery January 2020; high cholesterol) Social History The patient's occupation is a [employer]. Patient is and lives in [place]. Have you smoked in the past 12 months: No Alcohol use: No Caffeine use: Yes Caffeine amount and frequency: 1 cup tea daily Family History Family history of sleep disordered breathing: Yes Family Hx Sleep Apnea: Mother: Snoring, Sleep apnea - Treated, Father: Snoring, Sleep apnea - Treated Allergies and Home Medications Known drug allergies: Yes (as listed) Drug allergies reviewed: Yes Home medication list reviewed: Yes Allergy and home medication list: Allergies NSAIDS (Non-Steroidal Anti-Inflamma Allergy (Verified 05/22/23 13:40) Unknown Can't have 2/2 bariatric surgery Home Medications Medication Instructions Recorded Confirmed Last Taken Type Sertraline HCl [Zoloft] 2 tab PO DAILY 10/13/14 05/23/23 Unknown History buPROPion [Wellbutrin Sr] 100 mg PO BID 04/13/19 05/23/23 Unknown History Cetirizine HCl [Zyrtec] 10 mg PO PRN PRN 01/30/23 05/23/23 Unknown History Montelukast [Singulair] 10 mg PO PRN PRN 01/30/23 05/23/23 Unknown History Review of Systems Weight gain over past 5 years: 30 Cardiovascular: denies: high blood pressure Gastrointestinal: denies: heartburn Neurological: reports: headaches Psychiatric: reports: anxiety, depression Ear/Nose/Throat: reports: tonsillectomy, wisdom teeth removed Endocrine: denies: thyroid disease Immunologic: denies: allergies to food or environment Physical Exam Vital signs obtained and entered by: JULIETTE Alas MA Blood Pressure: 120/76 (LEFT ARM) Cuff size: regular Heart Rate: 79 O2 Saturation: 100 Height: 5 ft 3.5 in Weight: 274 lb 9.6 oz Body Mass Index: 47.9 BMI Classification: Morbidly Obese Neck circumference: 16.5 Mouth and throat: narrow oropharynx Soft palate: long Hard palate: normal Uvula: normal Uvula visualization: 25% Mallampati Class III Tongue: enlarged in size with teeth vega on lateral edges Tonsils: absent bilaterally Neck: normal w/o lymphadenopathy or thyromegaly Heart: regular rate and rhythm Lungs: clear bilaterally Impression and Plan 1. Suspected Obstructive Sleep Apnea-Hypopnea Syndrome, as previously diagnosed and as still suggested by a history of loud and irregular snoring, observed cessation of breath while asleep, unrefreshed sleep, cognitive impairment, and excessive daytime sleepiness. Narrow oropharynx and obesity are common predisposing factors for obstructive sleep apnea-hypopnea syndrome. I recommend proceeding to polysomnography to confirm the diagnosis and to assess severity. If the patient has significant sleep disordered breathing, a manual CPAP titration study will also be performed to find the optimal treatment pressure. I informed the patient of what the sleep studies involve and after some discussion, obtained agreement to proceed. The pathophysiology of obstructive sleep apnea-hypopnea syndrome was discussed with the patient and health risks of cardiovascular and cerebrovascular disease if not treated. Risks of drowsy driving discussed in detail and patient advised to avoid long distance driving and to kidney puller at the first sign of drowsiness. Patient agreed to plan. * Schedule polysomnography. * Avoid long distance driving or driving when feeling sleepy. * Avoid alcohol, sedative and muscle relaxant around bedtime. * Attempt to lose weight. * Review instructions provided by trained office staff on how to prepare for the sleep study. * Return for follow-up after sleep study completed. Counseling Topics: Weight loss health impact Plan: PSG/HST and followup Visit Type: In Office Time Spent with Patient (minutes): 21 Provider Statement: I spent 100% of the Face to Face Visit with the patient with greater than 50% spent counseling the patient and coordination of care.
[2023-05-23 16:24] VITALS: BP 120/76; O2SAT 100
== END 2023-05-23 15:35 | disposition home or self-care (01) ==
LOC: SC 15:34
PROVIDERS: ATTEND Nurse Practitioner Family
DX: R06.83 Snoring (principal); G47.8 Other sleep disorders; R06.81 Apnea, not elsewhere classified; G47.10 Hypersomnia, unspecified; R53.83 Other fatigue; E66.01 Morbid (severe) obesity due to excess calories; E11.9 Type 2 diabetes mellitus without complications; F32.A Depression, unspecified; Z68.42 Body mass index [BMI] 45.0-49.9, adult
CPT/HCPCS: 99202; 99212

== ENCOUNTER 2023-06-09 20:20 | Outpatient (CLI) | payer OTHER | END 2023-06-09 20:21 | disposition home or self-care (01) | LOC: SC 20:20 | PROVIDERS: ATTEND Nurse Practitioner Family | DX: G47.8 Other sleep disorders (principal); E11.9 Type 2 diabetes mellitus without complications; F32.A Depression, unspecified; E66.01 Morbid (severe) obesity due to excess calories; Z68.42 Body mass index [BMI] 45.0-49.9, adult | CPT/HCPCS: 95810 ==

== ENCOUNTER 2023-06-24 13:42 | Outpatient (CLI) | payer OTHER ==
--- NOTE | 2023-06-24 14:18 | Sleep Patient Instructions ---
Sleep Center Visit Summary - Patient Visit Information Reason for Visit: Followup sleep study - Patient Instructions Additional Instructions: You are being re-started on CPAP therapy with pressure setting at 4-10 cmH2O. You may call the office with any concerns about pressure feeling too low or too much for adjustment, if needed. You should contact DME supplier for any questions or concerns about mask or equipment. Please call office to schedule a follow up appointment in the sleep care office in 1-2 months. - Clinic Information Contact: [facility] [address] [place] [address] [email or web address] T: [phone]
--- NOTE | 2023-06-24 14:24 | SLEEP CARE CONSULTATION ---
Information from patient questionnaire entered by Juliette Okeefe. I have reviewed and concur with the information entered by Juliette Okeefe. This document represents the service I personally performed and the decisions made by , Taylor Grant ARNP. History of Present Illness Service Date and Time: 06/24/2023 1342 Initial [place] Sleepiness Scale score: 13 (in 2019) Current [place] Sleepiness Scale score: 12 (06/24/23) Additional HPI information: ANY RUIZ returns for follow up and results of the recently performed polysomnography. The sleep study showed mild upper airway resistance syndrome with an average AHI of 1.1 with RDI 6.9 and marco oxygen saturation of 91%. I explained the pathophysiology behind upper airway resistance syndrome. I reviewed the impact of weight changes on sleep apnea and strongly recommended losing weight. Patient would like to continue with the nasal CPAP therapy. I will adjust her pressure to 4-10 cmH20. She has used a CPAP before and knows what to expect when using the machine. Using CPAP every night in order to get used to it was emphasized. Patient advised to put CPAP mask on before getting into bed so as not to fall asleep without CPAP. Patient does not drink alcohol. Patient was cautioned about risks of drowsy driving until sleepiness symptoms resolve. Patient denies drowsy driving. Sleep Study - Results Type of Sleep Study: Polysomnography (COMPLETED 06/09/23) Prior sleep studies: Yes Year and Where: 2019 - [facility] Polysomnography/Home Sleep Study results: IMPRESSION: The quality of the study is good. The patient had slightly reduced sleep efficiency due to frequent awakenings throughout the night. The sleep architecture was abnormal for sleep fragmentation and reduced amount of time spent in REM and slow wave sleep (N3). Respiratory monitoring showed evidence of upper airway resistance syndrome (AHI = 1.1 and RDI = 6.9) associated with frequent arousals, but not oxyhemoglobin desaturation or hypoxia (marco oxygen saturation of 91%). The patient slept mostly supine during this study (supine AHI = 1.7; non-supine = 0.00). Snore was light in intensity. There was no significant periodic leg movement of sleep. Cardiac rhythm was normal sinus rhythm without significant arrhythmia. No abnormal behavior (parasomnia) observed during the night. CONCLUSIONS and RECOMMENDATIONS: 1. Upper Airway Resistance Syndrome (ICD-10 G47.8), as suggested by the frequent respiratory related arousals and elevated RDI. A trial of positive airway pressure therapy is recommended given the above symptoms. With BMI of 47.8 Kg/M2, weight loss is also recommended. Allergies and Home Medications Known drug allergies: Yes (Nsaids) Drug allergies reviewed: Yes Home medication list reviewed: Yes (no changes) Allergy and home medication list: Allergies NSAIDS (Non-Steroidal Anti-Inflamma Allergy (Verified 06/23/23 09:26) Unknown Can't have 2/2 bariatric surgery Review of Systems Review of systems same as previous: Yes (NO CHANGE) Physical Exam Vital signs obtained and entered by: JULIETTE Alas MA Blood Pressure: 128/76 (LEFT ARM) Cuff size: long Heart Rate: 78 O2 Saturation: 98 Height: 5 ft 3.5 in Weight: 274 lb 6.4 oz Body Mass Index: 47.8 BMI Classification: Morbidly Obese Impression and Plan 1. Upper Airway Resistance Syndrome, mild, with lowest oxygen saturation of 91%. Obviously this is the cause of the patients symptoms of unrefreshed sleep, and excessive daytime sleepiness. Positive pressure therapy could benefit diabetes, anxiety and depression. As mentioned above, the patient will be re-started on nasal autoCPAP therapy with pressure set at 4-10 cmH2O. Compliance guidelines also reviewed. A copy of compliance guidelines will be given for reference at check out. 2. Obesity, unspecified. Currently patients BMI is 47.8. Obesity increases the risk of apnea, CPAP pressure requirements and overall health risks especially cardiovascular and diabetes. Thus patient is advised to lose weight. * Nasal auto CPAP therapy, pressure at 4-10 cm H2O. * Attempt to lose weight. * The patient is again cautioned about driving until sleepiness completely resolves. * Return in 1-2 months. I will assess response to therapy and compliance at that time. Counseling Topics: Weight loss health impact Prescriptions: Device supplies Follow up with Sleep Care in: 1-2 months Visit Type: In Office Time Spent with Patient (minutes): 27 Provider Statement: I spent 100% of the Face to Face Visit with the patient with greater than 50% spent counseling the patient and coordination of care.
[2023-06-24 14:33] VITALS: BP 128/76; O2SAT 98
== END 2023-06-24 13:43 | disposition home or self-care (01) ==
LOC: SC 13:42
PROVIDERS: ATTEND Nurse Practitioner Family
DX: G47.8 Other sleep disorders (principal); E66.01 Morbid (severe) obesity due to excess calories; Z68.42 Body mass index [BMI] 45.0-49.9, adult
CPT/HCPCS: 99212; 99213

== ENCOUNTER 2023-07-11 15:00 | Outpatient (CLI) | payer OTHER | END 2023-07-11 15:15 | disposition home or self-care (01) | LOC: LAB.N 15:00 | PROVIDERS: ATTEND Physician Assistant Medical | DX: R30.0 Dysuria (principal) | CPT/HCPCS: 87077; 87086; 87181 ==